=== PATIENT | male | born 1985 | race Caucasian/White ===

== ENCOUNTER 2018-11-02 15:34 | Emergency (ER) | payer MEDICAID, SELFPAY ==
[2018-11-02 15:35] VITALS: BP 162/109; PULSE 89; RESP 15; TEMP 36.6; O2SAT 97; BMI 32.0
--- NOTE | 2018-11-02 15:42 | RAD_ITS ---
STUDY: X-RAY CHEST REASON FOR EXAM: Male, 33 years old. Rib pain. TECHNIQUE: Frontal and lateral views of the chest. COMPARISON: None. FINDINGS: There are low lung volumes. Lungs are clear. No pneumothorax. No infiltrates or effusions. There is no demonstrated pleural abnormality. Normal size heart. Normal mediastinum and myra. Normal visualized pulmonary arteries. Normal visualized aortic arch and descending thoracic aorta. Normal visualized thoracic spine. Possible nondisplaced fracture of the lateral portion of the left ninth rib. There is no demonstrated abnormality of the visualized soft tissue structures of the upper abdomen. RAD/Chest PA and Lateral IMPRESSION: Low lung volumes. Possible fracture of the left ninth rib. Electronically Signed: Chidi Mercedes MD at 15:52 EDT , Service support ,
--- NOTE | 2018-11-02 16:28 | ED.VIS.GEN ---
History of Present Illness Chief Complaint: Chest Other Informant: Patient Onset: Days - Trauma 6 days ago Context: Sudden Onset Timing: Continuous Quality: Pain left side posterior axillary line Location: Left Current Severity: Mild Maximum Severity: Severe Worsened by: Movement and breathing Relieved by: Nothing Associated Symptoms: Hurts to breathe Narrative: Patient is a 33-year-old gentleman who injured himself 6 days ago. He was on a riding mower. He had a pipe that was sticking out of the ground. He was thrown over the handlebars of the riding mower. He presented to [facility] and had x-rays that were reported as negative. He denies back pain. He denies abdominal pain. He is on no anticoagulant. He denied head trauma. He denied loss of conscious. Is not amnestic. He denies neck pain. Denies paresthesia, anesthesia motors present the time of the injury. - Past Medical History (1) No significant past medical history Status: Acute Past Medical History - Allergies and Home Meds Allergies/Adverse Reactions: Allergies Penicillins Allergy (Verified 11/02/18 15:35) Unknown Primary Care Physician: NOT,DEFINED [Primary Care Provider] - Past Medical History: None Surgical History: no surgical history Lives: Spouse/ Significant Other Smoking Status: Current every day smoker Alcohol: Rare Drugs: None Review of Systems General: Denies: Chills, Fever, Sweats Eyes: Denies: Visual changes - bilaterally, Blurred Vision - bilaterally, Diplopia ENT: Denies: Bilateral ear pain, Rhinorrhea, Sore throat Cardiovascular: Reports: Chest pain. Denies: Palpitations, Heart racing Respiratory: Reports: - - Hurts to breathe. Denies: Dyspnea, Cough, Sputum, Dyspnea on exertion, Orthopnea Gastrointestinal: Denies: Abdominal pain, Nausea, Vomiting, Diarrhea, Melena, Hematochezia Genitourinary: Denies: Dysuria, Hematuria, Frequency Musculoskeletal: Denies: Myalgias, Arthralgias, Neck pain, Back pain, Swelling, Extremity Pain Skin: Denies: Rash, Abrasions, Wounds Neurological: Denies: Headache, Weakness, Numbness Hematologic: Denies: Easy bruising, Easy bleeding Physical Exam Vital Signs/Narrative: Vital Signs Temp Pulse Resp BP Pulse Ox 11/02/18 15:35 97.9 F 89 15 162/109 H 97 Inital Vital Signs reviewed: Yes General: Well nourished, Well developed, Acute Distress Head: Normocephalic, Atraumatic Eyes: Perrl, EOMI ENT: Moist mucous membranes, No rhinorrhea Neck: Supple, Nontender Cardiovascular: Regular rate, Regular rhythm, No murmurs, Normal S1, Normal S2 Respiratory: No distress, CTA bilaterally, Chest nontender. Negative for: Rales, Rhonchi, Wheezing, Decreased Air Movement Abdomen: Soft, Nontender, Nondistended, Normal bowel sounds Back: Nontender, Normal Inspection Extremities: Nontender, No edema Skin: Normal color, No rash Neurological: Alert, Oriented x3, Cranial nerves II-XII grossly intact, Normal Strength, Normal Sensation, Normal DTR, Normal Gait Psychological: Normal affect, Normal Mood Diagnostic/Tx/Re-eval Chest X-Ray - ED: 2 View, Read by ED Physician, Normal, Heart, Lungs, Mediastinum, Left Rib Fx - Nondisplaced ninth rib fracture. There is no evidence of hemothorax or pneumothorax. - Medical Decision Making Nursing protocol was initiated. X-ray of the chest was obtained to evaluate for pneumothorax hemothorax. X-ray does reveal fracture. He was medicated with oral opiate analgesia and discharge with prescription for Percocet times 7 days and incentive spirometer. ED Disposition - Plan for ED Patient: Disposition: Home or Assisted Living Diagnosis: Left rib fracture Prescriptions: Oxycodone HCl/Acetaminophen [Percocet 5/325] 1 - 2 tab PO Q6H PRN PRN 7 Days #60 tab PRN Reason: Pain Referrals: Chris Capone MD [NON-STAFF] - 1 Week if not improving
[2018-11-02 16:39] VITALS: BP 155/98; PULSE 89; RESP 16; O2SAT 100
[2018-11-02] MEDS: oxyCODONE 5 MG Tablet PO (16:42)
== END 2018-11-02 16:43 | disposition home or self-care (01) ==
PROVIDERS: Emergency Provider Emergency Medicine
DX: S22.32XA Fracture of one rib, left side, initial encounter for closed fracture (principal); W31.89XA Contact with other specified machinery, initial encounter; Y93.H2 Activity, gardening and landscaping; Y92.9 Unspecified place or not applicable; Y99.9 Unspecified external cause status; F17.200 Nicotine dependence, unspecified, uncomplicated; Z88.0 Allergy status to penicillin
CPT/HCPCS: 71046; 99283

== ENCOUNTER → 2022-08-16 | Outpatient (CLI) | payer MEDICAID, SELFPAY ==
[2022-08-16 09:57] LABS: Hematocrit 48.7 % (40-54); Hemoglobin 15.8 g/dL (13.0-16.5); Mean Corp Hgb Conc 32.4 g/dL (32-36); Mean Corpuscular Hgb 27.7 pg (27.0-32.0); Mean Corpuscular Volume 85.4 fL (80-94); Mean Platelet Vol. 11.7 fl (6.2-12.0); Platelet Count 190 K/mm3 (150-450); RBC Distribution Width CV 13.7 % (11.6-14.6); RBC Distribution Width SD 42.7 fl (35.1-43.9); White Blood Count 7.1 K/mm3 (4.4-11.0)
[2022-08-16 10:50] LABS: Hemoglobin A1c 10.8 % (3.8-5.6)
[2022-08-16 11:06] LABS: ALB/GLOB Ratio 0.8 RATIO (0.9-2.4); AST(SGOT) 48 U/L (15-37); Alanine Aminotransfer ALT/SGPT 109 U/L (16-61); Albumin, Serum 3.5 g/dL (3.2-5.0); Alkaline Phosphatase 134 U/L (45-117); Anion Gap 10 (5-15); BUN 14 mg/dL (7-18); BUN/Creat Ratio 14.2 RATIO (10-20); Chloride 98 mmol/L (98-107); Creatinine, Serum 0.99 mg/dL (0.70-1.30); EST Glomerular Filtration Rate 90 mL/min (>60); Est Glom Filt Rate - Afr Amer 109 mL/min (>60); Globulin 4.2 g/dL (2.2-4.2); Glucose 307 mg/dL (74-106); Protein, Total 7.7 g/dL (6.4-8.2); Sodium Level 134 mmol/L (136-145); T4 Free Direct 0.97 ng/dL (0.76-1.46); Thyroid Stim Hormone (TSH) 2.91 uIU/mL (0.358-3.74)
== END | disposition home or self-care (01) ==
LOC: MTLAB 09:28
PROVIDERS: Nurse Practitioner Family; PCP Family Medicine; Referring Provider Family Medicine; Visit Provider Family Medicine
DX: R07.9 Chest pain, unspecified (principal); R63.1 Polydipsia
CPT/HCPCS: 36415; 80053; 83036; 84439; 84443; 85027

== ENCOUNTER → 2022-08-20 | Outpatient (CLI) | payer MEDICAID, SELFPAY ==
--- NOTE | 2022-08-20 13:05 | ECHOCS_ITS ---
Reason For Study: Hx Circulatory Disease Procedure This was a 2D Doppler, Color Flow transthoracic echocardiogram. The study was technically difficult. Contrast injection was performed. Exam performed in department. Left Ventricle Normal LV size. Left ventricular systolic function is normal. The estimated ejection fraction is 60 %. No regional wall motion abnormalities noted. Right Ventricle Normal RV size. Normal systolic function. Atria Normal left atrium. Normal right atrium. Mitral Valve Normal mitral valve. Tricuspid Valve Normal tricuspid valve. Aortic Valve The aortic valve is not well visualized. Pulmonic Valve The pulmonic valve is not well visualized. Great Vessels Normal aortic root. The pulmonary artery is normal size. Normal inferior vena cava. Pericardium/Pleural No pericardial effusion. Medication 22 gauge I.V. with prn adaptor inserted into left arm. Diluted definity 2.5ml given slow IV push to enhance endocardial definition. MMode/2D Measurements & Calculations LVIDd: 5.5 cm IVSd: 0.78 cm Ao root diam: 4.1 cm LVIDs: 3.4 cm LVPWd: 1.1 cm LA dimension: 4.0 cm FS: 38.4 % LAV(MOD-bp): 32.5 ml LA A4 area: 13.9 cm2 RA A4 area: 13.8 cm2 LAV(MOD-bp) Indexed: 12.0 ml/m2 LAV(MOD-sp2): 33.4 ml LAV(MOD-sp4): 30.2 ml Time Measurements MV dec time: 0.26 sec Doppler Measurements & Calculations MV E max yannick: 58.9 cm/sec Lat Peak E' Yannick: 17.9 cm/sec Med Peak E' Yannick: 10.0 cm/sec MV A max yannick: 72.6 cm/sec E/E' lat: 3.3 E/E' med: 5.9 MV E/A: 0.81 MV V2 max: 72.3 cm/sec MV P1/2t max yannick: 73.2 cm/sec Ao V2 max: 119.1 cm/sec MV max P.1 mmHg MV P1/2t: 84.5 msec Ao max P.7 mmHg MV V2 mean: 43.3 cm/sec MV dec slope: 253.8 cm/sec2 MV mean P.88 mmHg MV V2 VTI: 16.4 cm MVA(P1/2t): 2.6 cm2 LV V1 max: 105.7 cm/sec PA V2 max: 116.5 cm/sec LV V1 max P.5 mmHg PA V2 mean: 73.7 cm/sec ECHO/Echo Complete W/ Contrast Interpretation Summary Normal LV size. Left ventricular systolic function is normal. The estimated ejection fraction is 60 %. Contrast injection was performed. Ordering Physician: Ariadne Vega Performed By: Curt Grant RCS
== END | disposition home or self-care (01) ==
PROVIDERS: PCP Family Medicine; Visit Provider Nurse Practitioner Family
DX: Z86.79 Personal history of other diseases of the circulatory system (principal)
CPT/HCPCS: 93306; Q9957; A4216; C8929

== ENCOUNTER → 2022-09-26 | Outpatient (CLI) | payer MEDICAID, SELFPAY ==
[2022-09-26 12:59] LABS: ALB/GLOB Ratio 0.9 RATIO (0.9-2.4); AST(SGOT) 38 U/L (15-37); Alanine Aminotransfer ALT/SGPT 75 U/L (16-61); Albumin, Serum 3.7 g/dL (3.2-5.0); Alkaline Phosphatase 90 U/L (45-117); Anion Gap 7 (5-15); BUN 18 mg/dL (7-18); BUN/Creat Ratio 19.1 RATIO (10-20); Calcium,Total 9.5 mg/dL (8.5-10.1); Chloride 106 mmol/L (98-107); Creatinine, Serum 0.94 mg/dL (0.70-1.30); EST Glomerular Filtration Rate 94 mL/min (>60); Est Glom Filt Rate - Afr Amer 114 mL/min (>60); Glucose 129 mg/dL (74-106); Potassium 3.8 mmol/L (3.5-5.1); Protein, Total 7.7 g/dL (6.4-8.2); Sodium Level 137 mmol/L (136-145)
== END | disposition home or self-care (01) ==
LOC: MTLAB 09:35
PROVIDERS: PCP Family Medicine; Referring Provider Nurse Practitioner Family; Visit Provider Nurse Practitioner Family
DX: R74.8 Abnormal levels of other serum enzymes (principal)
CPT/HCPCS: 36415; 80053

== ENCOUNTER 2022-10-03 08:31 | Day surgery (SDC) | payer MEDICAID, SELFPAY ==
[2022-10-03 08:53] VITALS: BP 153/88; PULSE 87; RESP 18; TEMP 36.4; O2SAT 98; BMI 35.8
[2022-10-03] MEDS: Lactated Ringers 1,000 ML 15 ML IV (08:56)
--- NOTE | 2022-10-03 09:25 | HP.PCM_ITS ---
History and Physical Date of Admission: 10/03/22 Date of Service:? 08/14/22 MR#: [id number] Acct: [id number] Name:STEFANY ABBASI Rep #: [id number] : 1985 ? ? Provider: Dr. Rudi Vides MD Age/Sex:? 37/M ? ? Location: [facility] Status: Signed Intake Intake Visit Reasons:?UMBILICAL HERNIA Chief Complaint: umbilcal hernia, f/u 3 week medication check Is patient in pain?: No Allergies Penicillins Allergy (Verified 08/14/22 09:05) Unknown Medications omeprazole 40 mg capsule,delayed release 40 mg PO DAILY #30 caps 08/14/22 [Rx Confirmed 08/14/22] PFSH Medical History? Hearing loss Umbilical hernia Family History? Father Heart diseaseBrother Heart diseaseAunt ?? No problems noted. Social History? Smoking Status:? Unknown if ever smoked HPI HPI HPI: Patient is a 37-year-old male known to me for history of umbilical hernia as well as severe GERD who presents for follow-up of his GERD symptoms.? His initial consultation visit was 07/24/2022.? He reports today again with his .? He states that his heartburn is better and he reports that his omeprazole is helping tremendously.? By this he further details that he missed taking 1 dose and woke up gagging that same evening.? In addition to this medication, he is still doing lifestyle things like avoiding lying down too soon after eating.? Mr. Coburn relates a number of other complaints like his back bothering him more and this in turn limiting his activity.? He states that he was inspired following her last visit to work on his weight, but as he increases activity he felt more back pain.? The net effect is he believes his weight is changed maybe 5 pounds, but admits that he does not on a scale.? He also reports that his bloo d pressures continue to run high.? He was given a blood pressure monitor but family member and reports seeing blood pressures of 160s/ 1teens to 107.? His reports that she tried to get her into see his PCP?Dr. Garnett?but that he canceled 2 visits. Below is recapitulated from patient's initial consultation visit for ease of review: HPI: Patient is a 37-year-old male who presents for umbilical hernia.? Patient presents for surgical referral from Dr. Garnett.? This finding was first noticed by patient approximately 1.5 years ago after coughing really hard.? He notes then again 2 months ago he had a sneezing fit and felt significant pain from this hernia.? He has been reluctant to seek evaluation since he has not had any recent surgeries, but grew up around medical providers as a child with a number of maladies.? 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 He also notes that this discomfort has led to relative inactivity otherwise and subsequently, a weight gain of some 40 to 60 pounds over the last 3 years (with 20 pounds coming in the past year).? Other symptoms include: No inability to reduce hernia, no nausea, no obstipation. Patient has a personal history of smoking for 25 years, but reports that he stopped smoking 1 year ago. Pertinent surgical history includes: Noncontributory Besides the above, patient notes severe acid reflux/heartburn symptoms.? He reports these occur every day and sometimes multiple times per day.? He uses Tums every day 2 to 4 tablets to address the symptoms.? He has tried to avoid food triggers which she has identified as pizza, coffee, and spicy foods. He reports that he takes dinner sometimes past 7 PM and then retires to bed at 9 PM.? He confesses that he has woken up on multiple occasions gasping for air and tasting acid within his mouth.? His reports that she has tried to have her take medication more regularly to suppress the symptoms, but that he has been reluctant.? He has never undergone EGD for this issue. Patient has a significant past family history of cardiovascular disease.? He notes that his older brother (10 years his senior) had a heart attack 10 years ago?estimating age of diagnosis is 46.? He also notes that his father and paternal uncle both had heart attacks in their 50s.? He is trying to improve his own health so he does not follow the same path. ROS General General: Yes weight change; No appetite, fatigue, colon cancer, breast cancer or weakness HEENT HEENT: No difficulty swallowing, eye injury, eye surgery, swollen glands or hoarseness Endo Endocrine: No thyroid disease, diabetes mellitus, thyroid cancer, Hair loss, heat intolerance or cold intolerance Skin Skin: No rash or changing moles Breast Breast: No left breast lump, right breast lump, nipple discharge, breast pain, abnormal mammogram, abnormal US or breast enlargement Musc Musculoskeletal: No back problems, arthritis, rheumatoid arthritis, gout or joint pain Cardio Cardiovascular: Yes murmur; No pacemaker, heart disease, atrial fibrillation, high blood pressure, heart attack, heart stent, palpitations, shortness of breat with exertion or chest pain Psych Psychiatric: Yes depression and anxiety; No hearing voices Resp Respiratory: No shortness of breath, No sleep apnea, No cough, No COPD, No asthma, No emphysema and No wheezing Gastro Gastrointestinal: Yes abdominal pain, No nausea or vomiting, No diarrhea, No constipation, No blood in stool, Yes acid reflux, No hemorrhoids, No ulcers, No gallbladder problem and No black,tarry stools Raimundo Hematologic: No blood thinners, No blood disorders, No bleeding, No anemia and No blood clots Neuro Neurologic: No system reviewed and no additional complaints, except as documented, No as per HPI, No abnormal gait, No abnormal hearing, No abnormal movements, No abnormal speech, No behavioral changes, No burning sensations, No confusion, No convulsions, No disequilibrium, No dizziness, No localized weakness, No frequent falls, No headache(s), No lack of coordination, No loss of vision, No memory loss, No numbness, No other visual disturbances, No radicular pain, No restless legs, No sensory deficit, No syncope, No tingling, No tremor(s), No weakness and No other Exam Const General: cooperative and no acute distress Orientation: alert, awake and oriented x3 GI Other: Obese, abdominal striae present.? Nondistended.? Soft and nontender to palpation x4 quadrants.? Mild tenderness present in the epigastrium?favoring left side.? Fat-containing umbilical hernia that is reducible and nontender with palpation. Assessment and Plan Assessment and Plan (1) Heartburn symptom: ?Status:?Chronic ?Comment: Patient reporting much better control of heartburn and reflux symptoms on omeprazole.? Again, I reiterated the need for lifestyle modifications to mitigate the risk for reflux and patient expresses compliance with these requests.? Also again, based on patient's symptoms and history of smoking, I offered EGD to evaluate for possible hiatal hernia, H. pylori infection, or other cause of his symptoms and assess for the effect of the symptoms on patient's GE junction in particular.? This time patient expresses a willingness to proceed with endoscopy exam.? Patient was advised that exam is done under sedation and he will require a concrete mixing truck driver the day of the procedure. ?Plan: ? Continue omeprazole (refill order to pharmacy) ? Diagnostic EGD under local MAC.? Plan for empiric H. pylori biopsies and as needed based on exam. (2) Acid reflux: ?Status:?Acute ?Comment: Patient describing significant improvement of nighttime awakenings with acid reflux?now limited to just 1 episode since his consultation visit 07/24/2022. ?Plan: ? Continue omeprazole ? Diagnostic EGD as above (3) Umbilical hernia: ?Status:?Chronic ?Comment: This is a 37-year-old male who presented for initial surgical consultation in relation to an umbilical hernia on 07/24/2022.? At that time we discussed intentional weight loss would be required to optimize his postoperative outcome with a repair.? Patient is having a difficult time with this already given chronic back pains.? I have referred him back to his primary care provider and suggested he may benefit from referral to either spine surgery or pain medicine.? I have encouraged him to continue what ever activity is tolerable at this point.? Additionally, patient remarks of hypertension?noted with periodic BP checks at home.? Most concerning he is reporting diastolic pressures in excess of 110 mmHg?which I stated to him was an independent risk factor for stroke events.? This is particularly poignant given his family history of cardiovascular events.? I have strongly urged him to make his PCP, Dr. Garnett aware of this information and get in for a follow-up visit.? Today he reports being asymptomatic from this issue and his blood pressure was 140/90. ?Plan: ? Continue to recommend weight loss before considering repair of umbilical hernia ? Patient to follow-up with PCP, Dr. Garnett regarding uncontrolled hypertension ? ? ? Medications: Refilled omeprazole 40 mg? PO DAILY 30 caps 0RF ? ? I have examined the patient the following changes are noted: Patient reports that he has had a 25 pound weight loss. He reports that he has had minimal acid reflux symptoms and suspects that his previous symptoms may have been due to overeating. He notes that he has been off his prescribed omeprazole for the last 3 days or so due to running out of the medication and is awaiting a refill. He denies any questions for today's procedure. Therefore we will proceed with EGD under MAC sedation as discussed above.
--- NOTE | 2022-10-03 09:30 | IMM_PTH ---
PATIENT: STEFANY KAUR LOC: EN U#:[id number] AGE/SX: 37/M ROOM: RE10/03/[address]: Dr. Rudi Vides MD : 1985 BED: DIS: 10/03/2022 SPEC #: [id number] RECD: 10/03/22 13:37 STATUS: VAN PREMA #: [id number] GEOVANNA: 10/03/22 09:[address]: Rudi Vides DEPT: IMMUNOHISTOCHEMISTRY RECD BY: Lucretia Quiles ENTERED: 10/03/22 13:37 SP TYPE: IMMUNO OTHR DR: Edna Garnett DO Tissues: B - Stomach, NOS Procedures: H Pylori (initial) PHYSICIAN & INSTITUTION [place] [id number] SPECIMEN INFORMATION: Tissue Source: B ? Antrum biopsy Clinical Info: Heartburn, acid reflux, umbilical hernia Specimen Number: [id number] CPT code: 55689 METHODOLOGY: Deparaffinized sections of prefer/formalin-fixed tissue or PAP/DQ stained slides are incubated with monoclonal/polyclonal antibodies/oligonucleotide probes. Localization is made via biotin free immunoperoxidase method. Appropriate controls are performed and reacted as expected. Results on target cell population are indicated in the following table: RESULTS: ANTIBODY / CLONE RESULT Block B H Pylori (polyclonal) negative These tests were developed and their performance characteristics determined by [facility]. They may not have been cleared or approved by the U.S. Food and Drug Administration. The FDA has determined that such clearance or approval is not necessary. The above immunohistochemical/dualISH markers are ordered and reviewed by the Pathologist. INTERPRETATION: B. Antrum, biopsy: Negative for Helicobacter pylori organisms. SJ:krys 10/07/2022
--- NOTE | 2022-10-03 09:30 | EGD_PTH ---
PATIENT: STEFANY KAUR LOC: EN U#:[id number] AGE/SX: 37/M ROOM: RE10/03/[address]: Dr. Rudi Vides MD : 1985 BED: DIS: 10/03/2022 SPEC #: [id number] RECD: 10/03/22 12:21 STATUS: VAN PREMA #: [id number] GEOVANNA: 10/03/22 09:[address]: Rudi Vides DEPT: SURGICAL PATHOLOGY RECD BY: Malini Martinez ENTERED: 10/03/22 13:07 SP TYPE: EGD BIOPSY OTHR DR: Edna Garnett DO Tissues: A - Duodenum, NOS B - Gastric mucous membrane C - Esophagus, NOS Procedures: Special Stain Group II Surgery Specimen Level IV Alcian Blue/PAS (control) HEADER OPERATION: EGD (MAC), biopsy, electrohemostasis PRE-OP DIAGNOSIS: Heartburn, acid reflux, umbilical hernia TISSUE SUBMITTED: A ? Duodenal polyp biopsy, B ? Antrum biopsy for histo and H. pylori, C - Gastroesophageal junction biopsy MICROSCOPIC DIAGNOSIS A. Duodenal polyp, biopsy: A fragment of small intestinal mucosa with mild nonspecific chronic inflammation. B. Antrum, biopsy: Mild gastritis. See microscopic description and comment. C. Gastroesophageal junction, biopsy: Fragments of gastroesophageal mucosa with chronic inflammation. Intestinal metaplasia (goblet cell metaplasia) not identified. See comment. SJ:krys 10/04/2022 COMMENT B. The results of immunohistochemistry for Helicobacter pylori will be reported separately ([id number]). C. Alcian blue/PAS stain with matched control is used in the evaluation of the specimen. MICROSCOPIC DESCRIPTION Slides are reviewed. B. The specimen shows fragments of gastric mucosa with chronic inflammatory cell infiltrates in the lamina propria consisting of lymphocytes and plasma cells, consistent with mild chronic gastritis. GROSS DESCRIPTION A - Received in fixative is one container labeled with the patient's name and designated duodenal polyp biopsy. The specimen consists of one irregular fragment of light aponte soft tissue that measures 0.4 x 0.2 x 0.1 cm. The specimen is totally submitted in one cassette. B - Received in fixative is one container labeled with the patient's name and designated antrum biopsy. The specimen consists of multiple irregular fragments of light aponte soft tissue that in aggregate measure 0.5 x 0.4 x 0.1 cm. The specimen is totally submitted in one cassette. C - Received in fixative is one container labeled with the patient's name and designated GE junction biopsy. The specimen consists of two irregular fragments of light aponte soft tissue that in aggregate measure 0.6 x 0.3 x 0.1 cm. The specimen is totally submitted in one cassette. / SJ:rg 10/03/2022 TC:3 CPT: 93192 x3, 60561
[2022-10-03 10:05] VITALS: BP 153/88; BP 96/53; PULSE 65; RESP 16; TEMP 36.1; O2SAT 95
[2022-10-03 10:10] VITALS: BP 101/57; BP 153/88; PULSE 66; RESP 16; O2SAT 93
--- NOTE | 2022-10-03 10:10 | OP.EGD_ITS ---
Patient Name: Jayden Coburn Procedure Date: 10/03/2022 9:18 AM Date of : 1985 Age: 37 Procedure: Upper GI endoscopy Indications: Heartburn, Suspected esophageal reflux Providers: Rudi Vides MD Referring MD: Rudi Vides MD Medicines: See the Anesthesia note for documentation of the administered medications Patient Profile: Refer to note in patient chart for documentation of history and physical. Patient has symptoms of chronic throat burning. Complications: No immediate complications. Estimated blood loss: Minimal. Procedure: Pre-Anesthesia Assessment: - The heart rate, respiratory rate, oxygen saturations, blood pressure, adequacy of pulmonary ventilation, and response to care were monitored throughout the procedure. After obtaining informed consent, the endoscope was passed under direct vision. Throughout the procedure, the patient's blood pressure, pulse, and oxygen saturations were monitored continuously. The gastroscope was introduced through the mouth, and advanced to the second part of duodenum. The upper GI endoscopy was somewhat difficult due to the patient's agitation. Successful completion of the procedure was aided by increasing the dose of sedation medication. The patient tolerated the procedure fairly well. Scope In: 9:30:42 AM Scope Out: 9:58:24 AM Total Procedure Duration Time 0 hours 27 minutes 42 seconds Findings: The second portion of the duodenum was normal. No biopsies or other specimens were collected for this exam. A single 3 mm semi-sessile polyp with no bleeding was found in the first portion of the duodenum. Biopsies were taken with a cold forceps for histology. Estimated blood loss was minimal. Localized mild inflammation characterized by erythema was found in the gastric antrum. Biopsies were taken with a cold forceps for histology. Biopsies were taken with a cold forceps for [Purpose]. A small hiatal hernia was present. The Z-line was irregular and was found 43 cm from the incisors. Biopsies were taken with a cold forceps for histology. Estimated blood loss: 5 mL requiring treatment with electrocautery. The exam was otherwise without abnormality. Impression: - Normal second portion of the duodenum. No specimens collected. - A single duodenal polyp. Biopsied. - Gastritis. Biopsied. - Small hiatal hernia. - Z-line irregular, 43 cm from the incisors. Biopsied. - The examination was otherwise normal. Recommendation: - Discharge patient to home (via wheelchair). - Resume previous diet today. - Continue present medications. - Await pathology results. - Telephone my office for pathology results in 1 week. Procedure Code(s): --- Professional --- 72870, Esophagogastroduodenoscopy, flexible, transoral; with biopsy, single or multiple Diagnosis Code(s): --- Professional --- K31.7, Polyp of stomach and duodenum K29.70, Gastritis, unspecified, without bleeding K44.9, Diaphragmatic hernia without obstruction or gangrene K22.8, Other specified diseases of esophagus R12, Heartburn CPT copyright 2017 [employer]. All rights reserved. The codes documented in this report are preliminary and upon supervisory civil engineer review may be revised to meet current compliance requirements. Rudi Vides MD 10/03/2022 10:10:01 AM This report has been signed electronically. Number of Addenda: 0 Note Initiated On: 10/03/2022 9:18 AM
--- NOTE | 2022-10-03 10:11 | OP.CCLET_ITS ---
10/03/2022 Edna Garnett, Re : Upper GI endoscopy procedure for Jayden Coburn Dear Mariola This procedure was performed on September. My impressions and recommendations are as follows: Impressions : - Normal second portion of the duodenum. No specimens collected. - A single duodenal polyp. Biopsied. - Gastritis. Biopsied. - Small hiatal hernia. - Z-line irregular, 43 cm from the incisors. Biopsied. - The examination was otherwise normal. Recommendations : - Discharge patient to home (via wheelchair). - Resume previous diet today. - Continue present medications. - Await pathology results. - Telephone my office for pathology results in 1 week. My findings are described in the full procedure note, which is enclosed. If I can be of further assistance, please feel free to contact me at Doctor phone number(s): , Work: . Sincerely, Rudi Vides MD 10/03/2022 10:10:01 AM This report has been signed electronically.
[2022-10-03 10:15] VITALS: BP 153/88; BP 91/54; PULSE 69; RESP 16; O2SAT 96
[2022-10-03 10:21] VITALS: BP 101/63; BP 153/88; PULSE 70; RESP 16; TEMP 35.9; O2SAT 98
[2022-10-03 10:31] VITALS: BP 153/88
== END 2022-10-03 10:49 | disposition home or self-care (01) ==
LOC: EN 08:32 → AC 08:33
PROVIDERS: PCP Family Medicine; Referring Provider Family Medicine; Visit Provider Surgery
PROC: 0DJ08ZZ Inspection of Upper Intestinal Tract, Via Natural or Artificial Opening Endoscopic (ICD-10-PCS; CPT 43235; principal; 2022-10-03 09:25)
DX: K42.9 Umbilical hernia without obstruction or gangrene (principal); E11.9 Type 2 diabetes mellitus without complications; K29.70 Gastritis, unspecified, without bleeding; K44.9 Diaphragmatic hernia without obstruction or gangrene; K31.7 Polyp of stomach and duodenum; K21.9 Gastro-esophageal reflux disease without esophagitis; I10 Essential (primary) hypertension; Z79.84 Long term (current) use of oral hypoglycemic drugs; Z79.899 Other long term (current) drug therapy; Z86.718 Personal history of other venous thrombosis and embolism; Z87.891 Personal history of nicotine dependence
CPT/HCPCS: 43239; 88305; 88313; 88342; J7120; J2405

== ENCOUNTER → 2022-11-12 | Outpatient (CLI) | payer MEDICAID, SELFPAY ==
[2022-11-08 16:58] LABS: Hemoglobin A1c 6.4 % (3.8-5.6)
--- NOTE | 2022-11-12 12:33 | SUR.PREOP ---
RN ENTERED ROOM TO CHECK PATIENT IN FOR SURGERY. PATIENT STATED HE DOES NOT WANT TO HAVE THE SURGERY ANYMORE. PATIENT EDUCATED ON PATIENT RIGHTS. THIS RN OFFERED FOR PATIENT TO SPEAK WITH BEFORE LEAVING IN CASE HE HAD ANY QUESTIONS OR CONCERNS. PATIENT STATES THAT HE DOES NOT WISH TO SPEAK WITH . PATIENT WAS ACCOMPANIED BY AND MOTHER. PATIENT HAD NO QUESTIONS, COMMENTS, OR CONCERNS FOR RN AT THIS TIME. RN NOTIFIED THAT PATIENT DOES NOT WISH TO SPEAK WITH HIM. RN NOTIFIED [employer] AND OR MECH[employer] OF PATIENT CANCELLING HIMSELF.
== END | disposition home or self-care (01) ==
LOC: PAT 12-11 17:27
PROVIDERS: Anesthesiology; PCP Family Medicine; Referring Provider Surgery; Visit Provider Surgery
DX: Z01.818 Encounter for other preprocedural examination (principal); Z53.29 Procedure and treatment not carried out because of patient's decision for other reasons
CPT/HCPCS: 36415; 83036; 87081; J7120

== ENCOUNTER → 2022-11-20 | Outpatient (CLI) | payer MEDICAID, SELFPAY ==
[2022-11-20 12:46] LABS: Absolute Neutrophil Count 5.2 X10^3/uL (2.0-7.7); Basophil# 0.03 X10^3/uL; Basophil% 0.4 % (0-1); Eosinophil# 0.12 X10^3/uL; Eosinophils% 1.5 % (0-5); Hematocrit 47.4 % (40-54); Hemoglobin 15.7 g/dL (13.0-16.5); Lymphocyte % 27.9 % (19-41); Mean Corp Hgb Conc 33.1 g/dL (32-36); Mean Corpuscular Hgb 28.4 pg (27.0-32.0); Mean Corpuscular Volume 85.9 fL (80-94); Mean Platelet Vol. 11.8 fl (6.2-12.0); Monocyte% 7.3 % (0-10); NRBC Flagged by Analyzer 0 % (0-5); Neutrophil # 5.16 X10^3/uL (2.7-7.7); Neutrophil % 62.5 % (47-70); Platelet Count 256 K/mm3 (150-450); RBC Distribution Width CV 14.6 % (11.6-14.6); RBC Distribution Width SD 46.8 fl (35.1-43.9); Red Blood Count 5.52 M/mm3 (4.6-6.2); White Blood Count 8.2 K/mm3 (4.4-11.0)
[2022-11-20 13:13] LABS: ALB/GLOB Ratio 0.8 RATIO (0.9-2.4); AST(SGOT) 13 U/L (15-37); Alanine Aminotransfer ALT/SGPT 39 U/L (16-61); Albumin, Serum 3.5 g/dL (3.2-5.0); Alkaline Phosphatase 86 U/L (45-117); Anion Gap 7 (5-15); BUN 21 mg/dL (7-18); BUN/Creat Ratio 19.6 RATIO (10-20); Calcium,Total 9.2 mg/dL (8.5-10.1); Chloride 102 mmol/L (98-107); Creatinine, Serum 1.07 mg/dL (0.70-1.30); EST Glomerular Filtration Rate 82 mL/min (>60); Est Glom Filt Rate - Afr Amer 99 mL/min (>60); Ferritin 194 ng/mL (26-388); Globulin 4.3 g/dL (2.2-4.2); Glucose 121 mg/dL (74-106); Potassium 4.3 mmol/L (3.5-5.1); Protein, Total 7.8 g/dL (6.4-8.2); Sodium Level 134 mmol/L (136-145)
== END | disposition home or self-care (01) ==
LOC: MTLAB 11:18
PROVIDERS: PCP Family Medicine; Referring Provider Family Medicine; Visit Provider Family Medicine
DX: K92.1 Melena (principal); R11.2 Nausea with vomiting, unspecified
CPT/HCPCS: 36415; 80053; 82728; 85025

== ENCOUNTER → 2023-02-18 | Outpatient (CLI) | payer MEDICAID, SELFPAY ==
--- NOTE | 2023-02-18 16:05 | RAD_ITS ---
STUDY: X-RAY - LUMBOSACRAL SPINE REASON FOR EXAM: Male, 37 years old. Pain. TECHNIQUE: 6 view(s) of the lumbosacral spine, including lateral flexion and extension were obtained. COMPARISON: None FINDINGS: Normal lumbar lordosis. No substantial scoliosis. Normal alignment of the vertebrae. Normal vertebral bodies and endplates. Limited flexion and extension no abnormal motion. Mild intervertebral disc space narrowing at L4-5 and L5-S1 without significant osteophyte formation. Normal bilateral sacral ala, sacroiliac joints, and visualized sacrum. Normal visualized soft tissue structures. RAD/L/S Spine w Bend Min 6 Vw IMPRESSION: Limited flexion and extension with no abnormal motion. Minimal lumbosacral spondylosis most marked at L4-5 and L5-S1 without osteophytes. No acute abnormality or erosive changes. Electronically Signed: Chun Álvarez MD at 9:42 EDT ,
== END | disposition home or self-care (01) ==
LOC: MTRAD 16:03
PROVIDERS: PCP Family Medicine; Referring Provider Family Medicine; Visit Provider Family Medicine
DX: M54.50 Low back pain, unspecified (principal)
CPT/HCPCS: 72114

== ENCOUNTER 2023-04-04 13:00 | Outpatient (RCR) | payer MEDICAID, SELFPAY ==
--- NOTE | 2023-02-25 09:34 | HP.PTEVAL ---
Patient's Visit Information Visit Information Visit Information: STEFANY KAUR is a 38 year old M referred to Physical Therapy by Dr. Tony Coto MD with a diagnosis of Lumbar DDD. Date of Evaluation: 02/25/23 Physical Therapist: Juan Lopez DPT Visit Plan Frequency: 2x /Week Duration: 6 Weeks Plan: Start with prone extension progression. Start with prone over pillows slowly progressing into further extension progression as tolerated. May use IFC to increase tolerance to this. Once pain has centralized initiate neutral spine core stability exercises. Pt. was not able to tolerance full extension positioning this date, but only prone over pillows. Pt. progress as tolerated. May add in PA mobilizations and manual traction of lumbar spine with single leg pulls. Subjective Subjective: Pt. is here today for his initial evaluation with diagnosis of Lumbar DDD. Pt. reports having increased pain for years, but usually reduces after a few days to week. Pt. reports this time it has not been improving. Pt. reports pain in his L side of lumbar spine that radiates down his leg into his foot at times, currently into his L foot. Pt. reports N/T in the same region. he did have an xray showing some spondylosis of the L5/S1 region. Pt. reports no major LLE weakness. 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 Pt. is sleeping with difficulty secondary to pain. he is also having issues with static standing and sitting. He has better tolerance when he is walking. Pt. has tried some muscle relaxers and anti inflammatory with some relief. He has not tried any chiro or other treatment. pt. is hopeful to reduce his symptoms in order to get back to all recreational and work activities without limitations. Pain Lumbar spine: Pain Intensity (Out of 10): 5 Pain Intensity Range: 2 and 8 Objective Objective: POSTURE: Pt. has slight flexed posture, but not much. Pt. has equal wt. shift, no lateral shift noted. PALPATION: pt. has tenderness at lower lumbar L3-S1 regions. Hypomobility noted with spring testing. NEURO: decreased B DTR 1+ bilateral patellar and achillies. Pt. is able to rise on heels and toes without issues. ROM: LUMBAR SPINE: flexion min loss increase NW, exte mod loss increase NW, SB min loss NE, rotation min loss bilat NE. Pt. has tight B HS and tight B hip flexors. Pt. has tight hips throughout. MMT: RLE 5/5 throughout; LLE: ankle 5/5, great toe ext 5/5; knee: ext 4+/5 mild loss in strength, flexion 5/5; hip: flexion 4/5 mild increase NE, abd 5/5, ext 4+/5 increase NW. Core strength poor. GAIT: Pt. ambulates with fairly normal gait pattern, but does have some guarded posture with limited arm swing and no trunk rotation. Special Tests L/S Slump test left side: Positive L/S Slump test right side: Negative L/S Left Straight Leg Raise: Positive L/S Right Straight Leg Raise: Negative Lumbar Standing: Flexion - Mechanical Response: No effect Lumbar Standing: Flexion - Symptoms During Testing: Increases Lumbar Standing: Flexion - Symptoms After Testing: No worse Lumbar Standing: Extension - Mechanical Response: No effect Lumbar Standing: Extension - Symptoms During Testing: Increases Lumbar Standing: Extension - Symptoms After Testing: No worse Lumbar Standing: Right Side Glides - Mechanical Response: No effect Lumbar Standing: Right Side [place] - Symptoms During Testing: No effect Lumbar Standing: Right Side [place] - Symptoms After Testing: No effect Lumbar Standing: Left Side [place] - Mechanical Response: No effect Lumbar Standing: Left Side [place] - Symptoms During Testing: No effect Lumbar Standing: Left Side [place] - Symptoms After Testing: No effect Lumbar Lying: Flexion - Mechanical Response: No effect Lumbar Lying: Flexion - Symptoms During Testing: Decreases Lumbar Lying: Flexion - Symptoms After Testing: No better Lumbar Lying: Extension - Mechanical Response: No effect Lumbar Lying: Extension - Symptoms During Testing: Increases Lumbar Lying: Extension - Symptoms After Testing: No worse Lumbar Static: Slouched Sit - Mechanical Response: No effect Lumbar Static: Slouched Sit - Symptoms During Testing: Increases Lumbar Static: Slouched Sit - Symptoms After Testing: Worse Lumbar Static: Sitting Erect - Mechanical Response: No effect Lumbar Static: Sitting Erect - Symptoms During Testing: Decreases Lumbar Static: Sitting Erect - Symptoms After Testing: No better Lumbar Static:Lying Prone in Extension - Mechanical Response: No effect Lumbar Static: Lying Prone in Extension - Sx During Testing: Increases Lumbar Static: Lying Prone in Extension - Sx After Testing: No worse Comments:: better over 2 pillows Balance/Special Test Scores Oswestry Low Back Score: 27 Goals Goal 1:: LTG: pt. to be I with HEP for core stability and lumbar extension progression. Goal Time Frame: 4-6 Weeks Goal 2:: STG: Pt. to have full lumbar extension without increase in symptoms. Goal Time Frame: 2-4 Weeks Goal 3:: STG: Pt. to have symptoms centralized to lumbar spine. Goal Time Frame: 2 Weeks Goal 4:: LTG: Pt. to be able to walk and complete all standing ADLs without increase in lumbar spine pain. Goal Time Frame: 4-6 Weeks Goal 5:: LTG: pt. to have increased core strength to fair in order to reduce stress to lumbar spine with all recreational and work activities. Goal Time Frame: 4-6 Weeks Rehabilitation Potential Physical Therapy Diagnosis: Pt. has signs and symptoms consistent with lumbar DDD. Pt. has special testing suggesting disogenic involvement as seen in + slump test, + SLR and some DTR changes. He did have some + relief this visit with extension, but very small movement (prone over pillows). I would like to work into this hopefully to further reduce his symptoms. Pt. would benefit from PT to work on lumbar extension to reduce symptoms progressing back to core stability and back to work activities. Rehabilitation Potential: Good Anticipated Interventions Patient/Client Instruction: Educate patient on: Condition, Plan of Care, Risk Factors and Benefits of Fitness Program For the Purpose of:: To improve decision making, To facilitate caregiver knowledge, To improve self management, To prevent re-injury and To improve ability to perform tasks related to life management Therapeutic Exercise to Include: Strength training, Power training, Flexibilty training, Passive ROM, Active ROM, Dynamic Lumbar Stabilization and Radha Exercises Manual Therapy Techniques to Include: Mobilization Comment: manual traction For the Purpose of:: To decrease pain, To increase ROM, To improve nutrient delivery to tissue and To increase flexibility/ROM Text: Thank you for the opportunity to evaluate your patient. For Medicare and Medicare HMO plans, please review the plan of care and approve it. It will need to be FAXED BACK to us at [phone] for Medicare purposes. For Medicare only, by signing this I certify the plan of care. Please let me know if there are questions or concerns regarding this plan of care. Physician Signature: Date:
--- NOTE | 2023-04-04 14:44 | HP.PTREVAL ---
Re-Evaluation Intro: Dr. Tony Coto MD, It has been my pleasure to treat STEFANY KAUR over the last 8 visits for Lumbar DDD. Please see the progress note below for an update on the physical therapy plan of care! Subjective Subjective: Pt. reports that is pain is always there, but with get worse at times. He reports being flared up for some reason. No N/T in either leg, but increased L legged pain down to his toes. Objective Objective/Function: LUMBAR SPINE: mod loss increase NW, ext mod loss increase NW, rotation min loss NE bilat, SB min loss NE bilat. Pt. continues to have tight HS bilat. + slump test, + SLR as well. He did not have any weakness in either LE and no N/T. Normal neuro signs. He has been working on lumbar extension ROM to reduce disc irritation. He had originally be doing better, but more recently he has been getting worse. He has constant pain in his LLE to his mid calf and often in his foot. He due to limited reduction on symptoms I would recommend following back up with physician to determine best course of action. Plan Plan Plan: Follow up with physician to determine best course of action. Minimal progress with PT at this point in time. Balance/Gait/Functional tests Balance/Special Test Scores Oswestry Low Back Score: 20 Goals Goals Goal 1:: LTG: pt. to be I with HEP for core stability and lumbar extension progression. Goal Time Frame: 4-6 Weeks Goal Progress: Progressing Goal 2:: STG: Pt. to have full lumbar extension without increase in symptoms. Goal Time Frame: 2-4 Weeks Goal Progress: Progressing Goal 3:: STG: Pt. to have symptoms centralized to lumbar spine. Goal Time Frame: 2 Weeks Goal Progress: Not Progressing Goal 4:: LTG: Pt. to be able to walk and complete all standing ADLs without increase in lumbar spine pain. Goal Time Frame: 4-6 Weeks Goal Progress: Not Progressing Goal 5:: LTG: pt. to have increased core strength to fair in order to reduce stress to lumbar spine with all recreational and work activities. Goal Time Frame: 4-6 Weeks Goal Progress: Progressing Anticipated Interventions Anticipated Interventions Patient/Client Instruction: Educate patient on: Condition, Plan of Care, Risk Factors and Benefits of Fitness Program For the Purpose of:: To improve decision making, To facilitate caregiver knowledge, To improve self management, To prevent re-injury and To improve ability to perform tasks related to life management Therapeutic Exercise to Include: Strength training, Power training, Flexibilty training, Passive ROM, Active ROM, Dynamic Lumbar Stabilization and Radha Exercises Manual Therapy Techniques to Include: Mobilization Comment: manual traction For the Purpose of:: To decrease pain, To increase ROM, To improve nutrient delivery to tissue and To increase flexibility/ROM Re-Evaluation Ending Re-evaluation ending: Please do not hesitate to contact me at [phone] by phone or if you have questions or concerns regarding this new plan of care! Sincerely, WILDER ChicasT
== END 2023-04-04 19:00 | disposition home or self-care (01) ==
LOC: PT 13:00
PROVIDERS: PCP Family Medicine; Referring Provider Family Medicine; Visit Provider Family Medicine
DX: M51.36 Other intervertebral disc degeneration, lumbar region (principal)
CPT/HCPCS: 97014; 97110; 97161; 97164; G0283

== ENCOUNTER → 2023-08-07 | Outpatient (CLI) | payer MEDICAID, SELFPAY ==
--- NOTE | 2023-08-07 13:43 | MRI_ITS ---
HISTORY: Back pain, bilateral leg pain. TECHNIQUE: Multiplanar and multisequence MR images of the lumbar spine were obtained without intravenous contrast. 149 images. COMPARISON: XR 02/18/2023. FINDINGS: VERTEBRAE: Vertebral body heights maintained. Degenerative bone marrow endplate changes of L4-5 and L5-S1. ALIGNMENT: No anterior or posterior subluxation. CONUS: Normal morphology and position of the conus medullaris at L1-2. INTERVERTEBRAL DISCS: T11-12: Mild disc bulge with facet arthropathy resulting in minimal narrowing of the thecal sac and mild bilateral foraminal narrowing based on the sagittal images. T12-L1: No significant posterior disc protrusion, central canal stenosis, or foraminal narrowing based on the sagittal images. L1-2, L2-3: No significant posterior disc protrusion, central canal stenosis, or foraminal narrowing. L3-4: Mild central disc protrusion with annular fissure and facet arthropathy superimposed on a developmentally narrow spinal canal resulting in moderate central canal stenosis and mild bilateral foraminal narrowing. L4-5: Moderate left paracentral disc extrusion with inferior migration with facet arthropathy resulting in left L5 nerve root impingement, moderate central canal stenosis, and moderate bilateral foraminal narrowing. L5-S1: Mild posterior disc protrusion with facet arthropathy resulting in mild bilateral foraminal narrowing. No significant central canal stenosis. SOFT TISSUES: Posterior subcutaneous edema. MRI/Spine Lumbar (Routine) IMPRESSION: Mild degenerative disc disease of L3-4 superimposed on a developmentally narrow spinal canal resulting in moderate spinal canal stenosis and mild bilateral foraminal narrowing. Moderate left paracentral disc extrusion at L4-5 resulting in left nerve root impingement, moderate spinal canal stenosis, and moderate bilateral foraminal narrowing. Electronically Signed: Mary Drew MD at 14:52 EST ,
== END | disposition home or self-care (01) ==
LOC: MRI 13:23
PROVIDERS: PCP Family Medicine; Referring Provider Family Medicine; Visit Provider Family Medicine
DX: M54.9 Dorsalgia, unspecified (principal)
CPT/HCPCS: 72148

== ENCOUNTER → 2023-10-08 | Outpatient (CLI) | payer MEDICAID, SELFPAY ==
[2023-10-08 12:14] LABS: Absolute Lymphocyte Count 2.49 X10^3/uL (0.83-4.51); Absolute Neutrophil Count 4.4 X10^3/uL (2.0-7.7); Basophil# 0.03 X10^3/uL; Basophil% 0.4 % (0-1); Eosinophil# 0.15 X10^3/uL; Hematocrit 49.2 % (40-54); Hemoglobin 16.3 g/dL (13.0-16.5); Lymphocyte # 2.49 X10^3/ul (0.83-4.51); Mean Corp Hgb Conc 33.1 g/dL (32-36); Mean Corpuscular Hgb 28.4 pg (27.0-32.0); Mean Corpuscular Volume 85.7 fL (80-94); Mean Platelet Vol. 11.9 fl (6.2-12.0); Monocyte# 0.51 X10^3/uL; Monocyte% 6.8 % (0-10); NRBC Flagged by Analyzer 0 % (0-5); Neutrophil # 4.36 X10^3/uL (2.7-7.7); Neutrophil % 57.7 % (47-70); Platelet Count 235 K/mm3 (150-450); RBC Distribution Width CV 14.6 % (11.6-14.6); RBC Distribution Width SD 45.8 fl (35.1-43.9); Red Blood Count 5.74 M/mm3 (4.6-6.2); White Blood Count 7.6 K/mm3 (4.4-11.0)
[2023-10-08 12:52] LABS: Microalbumin,Random Urine 20.4 mg/L (NO RANGE EST.); Microalbumin:Creatinine Ratio 10.9 mg/g CRE (<30 mg/g CRE)
[2023-10-08 13:45] LABS: ALB/GLOB Ratio 1.2 RATIO (0.9-2.4); AST(SGOT) 26 U/L (15-37); Alanine Aminotransfer ALT/SGPT 61 U/L (16-61); Albumin, Serum 4.3 g/dL (3.2-5.0); Alkaline Phosphatase 78 U/L (45-117); Anion Gap 6 (5-15); BUN 19 mg/dL (7-18); BUN/Creat Ratio 17.6 RATIO (10-20); Calcium,Total 9.7 mg/dL (8.5-10.1); Chloride 107 mmol/L (98-107); Cholesterol 168 mg/dL (200); Creatinine, Serum 1.08 mg/dL (0.70-1.30); EST Glomerular Filtration Rate 80 mL/min (>60); Est Glom Filt Rate - Afr Amer 97 mL/min (>60); Globulin 3.5 g/dL (2.2-4.2); Glucose 100 mg/dL (74-106); High Density Lipoprotein 20 mg/dL; Potassium 3.9 mmol/L (3.5-5.1); Protein, Total 7.8 g/dL (6.4-8.2); Sodium Level 137 mmol/L (136-145); Triglycerides 376 mg/dL; Very Low Density Lipoprotein 75 mg/dL (5-40)
[2023-10-08 14:00] LABS: Hemoglobin A1c 6.2 % (3.8-5.6)
== END | disposition home or self-care (01) ==
PROVIDERS: PCP Family Medicine; Referring Provider Family Medicine; Visit Provider Family Medicine
DX: I10 Essential (primary) hypertension (principal); E11.9 Type 2 diabetes mellitus without complications
CPT/HCPCS: 36415; 80053; 80061; 82043; 82570; 83036; 85025

== ENCOUNTER 2023-12-10 06:46 | Inpatient (IN) | payer MEDICAID, SELFPAY ==
--- NOTE | 2023-11-27 09:38 | EKG12_ITS ---
Test Reason : PRE OP Blood Pressure : / mmHG Vent. Rate : 082 BPM Atrial Rate : 082 BPM P-R Int : 190 ms QRS Dur : 086 ms QT Int : 338 ms P-R-T Axes : 055 068 -03 degrees QTc Int : 394 ms Normal sinus rhythm Normal ECG Confirmed by Rudi Preciado ([id number]), research editor EZE MAGANA ([id number]) on 12/01/2023 10:00:10 AM Referred By: Shorty Tobias Confirmed By:Rudi Preciado
[2023-12-01 11:14] LABS: Magnesium 2.3 mg/dL (1.6-2.6)
[2023-12-01 11:41] LABS: HIV - WCH Non-Reactive (Nonreactive); Hepatitis B Surface Antibody Reactive; Hepatitis C Antibody Non-Reactive (Nonreactive)
[2023-12-01 12:12] LABS: Hemoglobin A1c 5.8 % (3.8-5.6)
[2023-12-02 13:08] LABS: Hepatitis A AB, Total Negative (Negative)
[2023-12-10] VITALS (17 sets, daily range): BP systolic 122–192; BP diastolic 72–104; PULSE 63–106; RESP 15–20; TEMP 36–36.8; O2SAT 94–100; BMI 38.0
[2023-12-10] MEDS: Acetaminophen 500 MG Tablet 1000 MG PO ×2 (07:49→16:54)
[2023-12-10] MEDS: Lactated Ringers 1,000 ML 15 ML IV ×2 (07:49→14:32)
[2023-12-10] MEDS: Magnesium 1 GM over 15 mins IV (07:50)
[2023-12-10 07:54] LABS: Bedside Glucose 147 mg/dL (74-106)
--- NOTE | 2023-12-10 08:30 | HP.PCM_ITS ---
History and Physical Date of Admission: 12/10/23 MR#: [id number] Acct: [id number] Name: STEFANY KAUR Rep #: [id number] : 1985 Provider: Dr. Shorty Tobias MD Age/Sex: 38/M Location: [facility] [place] Status: Signed Intake Vital Signs 10/20/2408:31 Height 6 ft 5 in Weight: 313 lb 8 oz BMI 37.1 Intake Visit Reasons: lumbar spine Is patient in pain?: Yes Allergies No Known Allergies Allergy (Verified 12/03/23 09:28) Medications ?Medication ?Instructions ?Recorded ?Confirmed ?Type omeprazole 40 mg capsule,delayed 40 mg PO DAILY GERD #30 caps 08/14/22 12/03/23 Rx release lisinopril 10 1 tab PO DAILY BP 09/30/22 12/03/23 History mg-hydrochlorothiazide 12.5 mg tablet metformin 500 mg tablet 1,000 mg PO BID DIABETES 09/30/22 12/03/23 History cyclobenzaprine 10 mg tablet 10 mg PO Q12H PRN PRN muscle spasm 08/25/23 History dulaglutide 0.75 mg/0.5 mL 0.75 mg subcut BAKER DIABETES 08/25/23 12/03/23 History subcutaneous pen injector (Trulicity) naproxen 500 mg tablet 500 mg PO BID PAIN 08/25/23 12/03/23 History PFSH Medical History (Updated 11/24/23 @ 08:29 by Helen Deleon) Diabetes Seizures History of hiatal hernia Shortness of breath on exertion History of pain when walking Wears hearing aid Wears glasses Anxiety Marijuana use DVT (deep venous thrombosis) Back pain Dietary restriction Gastric reflux Former smoker Hypertension History of echocardiogram Umbilical hernia Surgical History History of esophagogastroduodenoscopy (EGD) Hx of tonsillectomy Hx of myringotomy Family History Father Heart diseaseBrother Heart diseaseAunt No problems noted. Social History Smoking Status: Former smoker HPI lumbar spine Details: This documentation accurately reflects the service provided and the decisions made by me, Dr. Shorty Tobias MD 12/03/23 [id number]. Part of today?s visit was documented by [ ], acting as scribe. STEFANY KAUR is a 38 year old M here today for his preop appointment on his lumbar spine. Patient notes that he continues to have pain although he has been trying to staying active. He is able to stand for 5 minutes before he needs to sit down. He has numbness and tingling into his bilateral legs with sitting. His pain is now into his right hip and right quad. Patient takes naproxen for pain. Luis M is is here for his preop visit. He has had longstanding low back pain with left lower extremity radiation. Recently about 2 weeks ago he started having right anterior thigh radiation as well. His symptoms are affecting his quality of life. Following his his previous history. 10/21/23: STEFANY KAUR is a 38 year old M here today for Lumbar pain. Patient states his back has been bothering him a couple of years. Patient states the pain in his whole lower back and he does have pain that radiates down his legs left it worse. Patient has no numbness and tingling that goes down his legs. Patient hasn't had injection in his back. Stefany has had low back pain for many years but this significantly worsened in the middle of summer last year. He has significant low back pain that radiates down to the left lower extremity all the way to the toes. He has significant difficulty with walking distances and is able to walk only about couple of blocks at a time after which she has to find a place to sit down or lean onto something. He avoids going shopping because of this issue. He has had physical therapy and chiropractic treatment without significant relief. He has avoided epidural injections because of this diabetes which is now well-controlled with an A1c of 6.2. He has seen Dr. Saundra paulson multiple times and has been referred to me for surgical intervention. He does not take any blood thinners. He had a cardiac murmur but does not have any ongoing cardiology treatment. He has not been able to walk since fall of last year. He works in [employer]. His symptoms are affecting his quality of life. Ortho Exam General General: Yes no acute distress Neurologic: Yes alert and Yes oriented x3 Spine SPINE TESTING CERVICAL THORACIC LUMBAR Musculoskeletal Strength 0=absent - 5=normal Details: Examination of the lower back shows midline and paraspinal tenderness worse on the left side. Neurologic evaluation of lower extremity shows 5 x 5 power normal shows normal sensations in all dermatomes. Passive straight leg raise test is positive on the left. Coding Level of Care Code Off vis,est,level 4 Diagnoses Herniated nucleus pulposus, L4-5 left M51.26 Spinal stenosis of lumbar region with neurogenic claudication M48.062 Time Spent (min) 35 Assessment and Plan Assessment and Plan (1) Herniated nucleus pulposus, L4-5 left: Status: Acute (2) Spinal stenosis of lumbar region with neurogenic claudication: Status: Acute Plan I again reviewed his x-rays and MRI of the lumbar spine. X-rays are from February and MRI from July. I reviewed these images with him in detail. He has left paracentral disc herniation L4-5 which is causing severe lateral recess stenosis. There is congenital bony canal narrowing with moderate central stenosis at both L3-4 and L4-5. L5-S1 also shows disc degeneration but does not have any significant central or foraminal stenosis. Dynamic x-rays do not show any significant instability. I explained to him the imaging findings in detail. He has developed significant stenosis and claudication and his overall mobility has been significantly affected because of it. He has not been able to work at least for the last 8 to 9 months because of this. I explained to him all options of treatment which include continued nonoperative treat measures versus surgery. Physical therapy and chiropractic treatment has not given him relief in the past. He wishes to proceed with surgical intervention. Surgical options were discussed. L3-5 anterior posterior fusion with anterior decompression was discussed in detail. All risk benefits and alternatives were discussed. The risks include but are not limited to infection, bleeding, injury to nerves and vessels, need for blood transfusion, injury to major vessels, visceral injury, ileus, hardware failure, pseudoarthrosis, adjacent segment degeneration, need for further surgery, DVT, pulm embolism, pneumonia, atelectasis, cardiopulmonary event. Patient understands and agrees to proceed with surgery. Consent was signed.
[2023-12-10] MEDS: Clindamycin 900 MG/50 ML BAG 75 MG IV ×2 (08:53→16:54)
--- NOTE | 2023-12-10 09:25 | RAD_ITS ---
INDICATION: PAIN EXAMINATION/TECHNIQUE: X-RAY - Spot fluoroscopic intraoperative images of the lower lumbar spine COMPARISON: None. FINDINGS/ RAD/Lumbar Spine 2 or 3 Views IMPRESSION: Spot fluoroscopic intraoperative images of the lumbar spine with images to be interpreted by the operating physician. Electronically Signed: Amador Leiva DO at 4:19 EDT ,
[2023-12-10] MEDS: Ropivacaine 0.5% 30 ML Vial (13:47)
--- NOTE | 2023-12-10 14:00 | PCM.OPRPT ---
Report of Operation Date of Procedure: 12/10/23 Description of Surgical Findings:: Preoperative diagnosis: L3-5 disc degeneration, disc herniation, stenosis with neurogenic claudication Postoperative diagnosis: Same Name of procedures L3-5 oblique lumbar interbody fusion (OLIF), minimally invasive left sided approach, lateral decubitus: ? L3-4 anterolateral spinal fusion 86468 ? L4-5 anterolateral fusion 38506/51 ? L3-4 insertion of cage 65698 ? L4-5 insertion of cage 64205/51 ? Bone graft aspirate left iliac crest separate incision ? Allograft cancellous chips Attending Surgeon: Dr. Shorty Tobias Estimated blood loss: 200 mL Anesthesia: General Complications: None Indications: Patient is a 38-year-old pleasant gentleman who has had a long history of low back pain and bilateral lower extremity radiation with difficulty walking distances. Xrays & MRI revealed L3-5 disc degeneration, L3-4 central and L4-5 left paracentral disc herniation. After undergoing a prolonged period of nonoperative treatment, the patient elected to undergo surgical decompression & fusion. All surgical options were discussed with the patient including anterior and posterior approaches. All risks and benefits associated with the procedure were explained to the patient. The risks include but are not limited to infection, bleeding, injury to nerves and vessels including major vessels like IVC and aorta, persistent paresthesia, persistent pain, dural tear, need for further procedures, adjacent segment degeneration, pseudoarthrosis, hardware failure, retrograde ejaculation, paralytic ileus, etc. Procedure: The patient was identified in the preoperative holding suite using Unique patient identifiers. Skin was marked, consent was reviewed, and all questions were answered. The patient was then brought back to the operative room. A surgical timeout was performed to make sure correct procedure was being done on the correct patient and all operative room staff were on the same page. General endotracheal anesthesia was then given to the patient. Clifton catheter was inserted. The patient was then carefully positioned in right lateral decubitus position with the left side up on a regular OR table. Axillary roll was placed and all bony prominences were well- padded. Hip positioners were placed in the posterior buttocks and anterior sternal area. The surgical area was prepped and draped in usual fashion. Preoperative antibiotic was injected IV as preoperative antibiotic. A final timeout was then again done just before starting the procedure. A 2 inch incision oblique was taken in the left lower quadrant of the abdomen 2 fingerbreadths away from the iliac crest and the lower ribs. Sharp dissection with Bovie was carried out up to the fascia covering the external oblique. The external oblique, internal oblique and transversus abdominis muscles were split along the muscle fibers and retroperitoneal space was entered. Sponge sticks were utilized to move the bowel and peritoneum vyz-[id number]-vvf-way and psoas muscle was exposed staying within the retroperitoneal plane. [employer] retractor system was positioned and the retractor blade was applied onto the psoas. The interval between psoas and midline structures was developed and appropriate retractors were placed. Once adequate interval was cleared, a disc space was identified and a marker x-ray was taken. This identified the L4-5 disc level. The prepsoas interval was then traced superiorly to expose the L3-4 disc space. Annulotomy was done with a long handled knife starting at L4-5. Pituitary was used to remove disc material. Curettes were used to prepare the endplates. Disc space spreaders were utilized to distract and increase the disc height. Near complete discectomy was performed. Trials of serially increasing sizes were used. A Jamshidi needle was used to aspirate bone marrow from the left anterior iliac crest through a separate incision and this aspirate was mixed with the allograft bone chips. A Depuy Graham cage of size of the 18 x 15 x 12 mm with 15 degrees lordosis was packed with corticocancellous allograft bone chips mixed with bone marrow aspirate. This was inserted into the L4-5 disc space. The retractors were then repositioned to expose the L3-4 disc and the procedure was repeated with complete discectomy and endplate preparation. Smaller disc distractors were also used to bluntly perform a contralateral annulotomy at the both levels. Cage size was 18 x 15 x 14 mm at L3-4. AP and lateral C-arm pictures were taken to confirm good position of the cage. Some bone chips were also packed around the cages. Screw with washer was placed into the lower L3 body with a washer partially covering the cage at L3-4. Hemostasis was confirmed. The retractor blades were removed. Closure was done in layers with a continuous strand of # 1 Vicryl in all muscle layers. 2-0 Vicryl was used for subcutaneous tissue and 4-0 for Monocryl for the skin. Steri-Strips were applied and 4 x 4 gauze and Tegaderm were applied. Surgeon: Shorty Tobias Admit VTE Documentation VTE Mechan Device Prophylaxis: SCD's Procedures Musculoskeletal 20xxx-29xxx: Other Procedure See Report
--- NOTE | 2023-12-10 14:11 | OP.PCM_ITS ---
Report of Operation Date of Procedure: 12/10/23 Description of Surgical Findings:: Preoperative diagnosis: L3-5 disc degeneration, disc herniations, stenosis with neurogenic claudication Postoperative diagnosis: Same Name of procedures: L3-5 posterior percutaneous pedicle screw instrumented fusion, prone: ? L3-4 posterior spinal fusion 34134 ? L3-5 posterior pedicle screw instrumentation 50740 ? L4-5 posterior fusion 97242/51 ? Allograft cancellous chips Attending Surgeon: Dr. Shorty Tobias Asst surgeon: Dr. Baldemar Heath Estimated blood loss: 200 mL (total for entire case) Anesthesia: General Complications: None Description of procedure: After the anterior procedure was complete, the patient was then turned supine. The patient was then transferred to Guille table in prone position. Back was prepped and draped in usual fashion. C-arm AP view was then taken. C-arm was positioned in a way that L3 was centralized and superior endplate of was parallel to the beam. Spinous process was centered between the pedicles. Midline was marked with skin marker and lateral borders of the pedicles were also marked. Skin marker was also utilized to cheko transversely across the middle of the pedicles at L3. 2 transverse paramedian incisions of 1 inch were placed. The fascia was incised vertically. Finger dissection was utilized to palpate the transverse process and facet joint. Viper Prime screws with towers were inserted and docked onto the transverse processes. This was then slowly moved medially to reach the superior articular process of L3. This was then confirmed on C-arm and then a mallet was utilized to drive the trocar into the pedicle going up to the medial wall of the pedicle on AP view. This was performed both sides. C-arm lateral view confirmed that the tip of the trocar was in the vertebral body, and the screw was advanced into the pedicle and vertebral body. This was repeated similarly at L4 and L5 bilaterally. Screw sizes were 7 x 50 mm at all levels bilaterally. 80 mm precontoured titanium 5.5 mm lordotic jihan on the left and 90 mm on the right were then passed through the screw extensions and reduced down to the screws with the help of Sensum instrumentation system on both sides. AP and lateral view of the C-arm showed good positioning of the screws and cages. Final tightening with the torque screwdriver was then completed. Julia was utilized to roughen the facet joint at L3-4 and L4-5 on the left side. Cancellous allograft bone chips mixed with bone marrow aspirate were then placed over this decorticated area. Hemostasis was achieved. Closure was done in layers with 0 Vicryls for the fascia, 2-0 Vicryls for the subcutaneous tissue, and Monocryl for the skin. Dermabond was applied. Dressings were applied covered with Tegaderm. The patient was then turned supine onto a hospital bed. The patient was extubated and taken to PACU in stable condition. The patient tolerated the procedure well and no complications occurred. [employer] [place] cage & Viper Prime minimally invasive pedicle screw instrumentation system was utilized in this case. No dural tear was identified intraoperatively. I was present for the entirety of the case and performed the surgery. Surgeon: Shorty Tobias automotive finance manager: Baldemar Heath Admit VTE Documentation VTE Mechan Device Prophylaxis: SCD's Procedures Musculoskeletal 20xxx-29xxx: Other Procedure See Report
[2023-12-10 15:37] LABS: Bedside Glucose 196 mg/dL (74-106)
[2023-12-10] MEDS: metFORMIN HCl 1,000 MG Tablet 1000 MG PO (16:54)
[2023-12-10] MEDS: Morphine 2 MG/ML Syringe IV (16:54)
[2023-12-10] MEDS: Methocarbamol 500 MG Tablet 1000 MG PO ×2 (17:30→22:44)
[2023-12-10] MEDS: Ketorolac 15 MG/ML Vial IV (18:06)
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
[2023-12-10] MEDS: oxyCODONE 5 MG Tablet PO (20:38)
[2023-12-10] MEDS: Senna/Docusate Sodium 1 Tablet 2 TABLET PO (22:44)
[2023-12-10] MEDS: Insulin Lispro 100 UNIT/ML INSULN.PEN SC (23:21)
[2023-12-11] VITALS (9 sets, daily range): BP systolic 157–173; BP diastolic 85–110; PULSE 96–110; RESP 15–18; TEMP 36.4–37.2; O2SAT 95–99
[2023-12-11] MEDS: Ketorolac 15 MG/ML Vial IV ×2 (00:05→05:25)
[2023-12-11] MEDS: Acetaminophen 500 MG Tablet 1000 MG PO ×2 (00:05→07:53)
[2023-12-11 00:25] LABS: Bedside Glucose 150 mg/dL (74-106)
[2023-12-11] MEDS: Morphine 2 MG/ML Syringe IV (00:50)
[2023-12-11] MEDS: Clindamycin 900 MG/50 ML BAG 75 MG IV (00:53)
[2023-12-11] MEDS: hydrALAZINE 20 MG/ML Vial 5 MG IV (05:21)
[2023-12-11 07:00] LABS: Hemoglobin 13.1 g/dL (13.0-16.5); Mean Corp Hgb Conc 32.8 g/dL (32-36); Mean Corpuscular Volume 85.5 fL (80-94); Mean Platelet Vol. 11.6 fl (6.2-12.0); Platelet Count 227 K/mm3 (150-450); RBC Distribution Width CV 15.3 % (11.6-14.6); RBC Distribution Width SD 47.4 fl (35.1-43.9); Red Blood Count 4.68 M/mm3 (4.6-6.2); White Blood Count 11.6 K/mm3 (4.4-11.0)
[2023-12-11 07:14] LABS: Bedside Glucose 125 mg/dL (74-106)
[2023-12-11 07:47] LABS: Anion Gap 8 (5-15); BUN 17 mg/dL (7-18); BUN/Creat Ratio 17.6 RATIO (10-20); Calcium,Total 8.1 mg/dL (8.5-10.1); Chloride 106 mmol/L (98-107); Creatinine, Serum 0.97 mg/dL (0.70-1.30); EST Glomerular Filtration Rate 91 mL/min (>60); Est Glom Filt Rate - Afr Amer 110 mL/min (>60); Estimated Creatinine Clearance 155.67 ml/min; Glucose 122 mg/dL (74-106); Potassium 3.8 mmol/L (3.5-5.1); Sodium Level 136 mmol/L (136-145)
[2023-12-11] MEDS: Ensure Surgery 237 ML LIQUID PO (07:52)
[2023-12-11] MEDS: oxyCODONE 5 MG Tablet PO ×2 (07:52→11:59)
[2023-12-11] MEDS: Senna/Docusate Sodium 1 Tablet 2 TABLET PO (07:52)
[2023-12-11] MEDS: hydroCHLOROthiazide 12.5mg 12.5 MG PO (07:53)
[2023-12-11] MEDS: Lisinopril 10 MG Tablet PO (07:53)
[2023-12-11] MEDS: Pantoprazole Sodium 40 MG Tablet PO (07:53)
[2023-12-11] MEDS: metFORMIN HCl 1,000 MG Tablet 1000 MG PO (07:53)
[2023-12-11] MEDS: Meloxicam 15 MG Tablet PO (07:53)
[2023-12-11] MEDS: Methocarbamol 500 MG Tablet 1000 MG PO (09:35)
--- NOTE | 2023-12-11 09:55 | RAD_ITS ---
STUDY: X-RAY - LUMBAR SPINE REASON FOR EXAM: Male, 38 years old. s/p fusion -- Please do upright AP lateral TECHNIQUE: 2 view(s) of the lumbar spine were obtained. COMPARISON: None FINDINGS: Normal lumbar lordosis. There is no substantial scoliosis. There is a normal alignment of the vertebrae. The patient is status post laminectomy and fusion at the L3-L4 and L4-L5 levels with prosthetic disc placement. The soft tissue structures are unremarkable. RAD/Lumbar Spine 2 or 3 Views IMPRESSION: Status post fusion at the L3-L4 and L4-L5 levels. Electronically Signed: William Bailey MD at 10:45 EDT ,
--- NOTE | 2023-12-11 11:17 | CASEMGMT ---
QUITA MERAZ Assessment: Face to Face with pt for initial transition planning/care coordination assessment. QUITA MERAZ introduced self and role at [facility] [place], pt voices understanding and consents to assessment. Pt sleeping when RN KT arrived, pt in no distress. Pt is A&O x4 and answers all questions appropriately at this time. Care providers, pharmacy, and demographics verified/updated. Admitting Dx: ERAS Anterior and Posterior lumbar PCP: Shola Specialists: STEPHEN Pham Preferred Pharmacy: [facility] [place] Insurance: [facility] Prescription Benefit: yes LNOK: Rudi - dad, Criss - mom, Palmira - sister Living Arrangements: Pt lives with girlfriend and 3 kids in a 1 story apt with 12 stairs and handrails to enter. Pt states he is I with ADLs an IADLs. Transportation: Pt girlfrind able to transport. DME: Hearing aids HHC/SNF: Denies Hx of Pt states no concerns with going home at time of dc. Pt states no further concerns/needs. CM to follow. Advised pt to ask CM if any further question/concerns/needs arise, voices understanding. Pt Goal: Home Plan: Home no needs Corby DEVLIN CM
[2023-12-11 11:26] LABS: Bedside Glucose 197 mg/dL (74-106)
[2023-12-11] MEDS: Insulin Lispro 100 UNIT/ML INSULN.PEN SC (11:59)
--- NOTE | 2023-12-11 12:07 | PCM.PN.ORT ---
Subjective Subjective Postop day 1 status post L3-5 fusion. Pain well-controlled. Has significant pain overnight but it is now much better after walking with PT. Passed flatus. Tolerated solid diet. Denies any nausea vomiting. Objective Data Objective Data Vital Signs: Vital Signs Temp Pulse Resp BP Pulse Ox O2 Del Method O2 Flow Rate 98.9 F 109 H 18 157/110 H 95 Room Air 2 12/11/23 09:43 12/11/23 09:43 12/11/23 09:43 12/11/23 09:43 12/11/23 10:47 12/11/23 09:43 12/11/23 04:00 Oxygen Flow Rate (L/min) 2 Oxygen Delivery Method Room Air Weight: 312 lb 2.793 oz Body Mass Index (BMI) 38.0 Intake & Output: Intake and Output for Last 24 Hours 12/09/23 12/10/23 12/11/23 23:59 23:59 23:59 Intake Total 1234 / 1634 750 / 750 Output Total 200 / 200 Balance 1034 / 1434 750 / 750 Lab / Micro Data 12/11/23 06:13 12/11/23 06:13 Labs: Laboratory Results - last 24 hr 12/10/23 15:19: POC Glucose 196 H 12/10/23 23:15: POC Glucose 150 H 12/11/23 06:13: WBC 11.6 H, RBC 4.68, Hgb 13.1, Hct 40.0, MCV 85.5, MCH 28.0, MCHC 32.8, RDW Std Deviation 47.4 H, RDW Coeff of [place] 15.3 H, Plt Count 227, MPV 11.6, Sodium 136, Potassium 3.8, Chloride 106, Carbon Dioxide 22.0, Anion Gap 8, BUN 17, Creatinine 0.97, Estim Creat Clear Calc 155.67, Est GFR (MDRD) Af Amer 110, Est GFR (MDRD) Non-Af 91, BUN/Creatinine Ratio 17.6, Glucose 122 H, Calcium 8.1 L 12/11/23 06:50: POC Glucose 125 H 12/11/23 11:08: POC Glucose 197 H Micro: Microbiology 12/01/23 09:37 Swab (Method) Nasal Screen MRSA/MSSA - Final Radiography Diagnostic Testing: Radiology Impression Lumbar Spine X-Ray 12/10/23 09:25 IMPRESSION: Spot fluoroscopic intraoperative images of the lumbar spine with images to be interpreted by the operating physician. Electronically Signed: Amador Leiva DO at 4:19 EDT , Lumbar Spine X-Ray 12/11/23 09:55 IMPRESSION: Status post fusion at the L3-L4 and L4-L5 levels. Electronically Signed: William Bailey MD at 10:45 EDT , Physical Exam Narrative Dressing?CDI. Neurologic evaluation of lower extremity shows 5 x 5 power normal shows normal sensations in all dermatomes. Assessment & Plan Assessment/Plan (1) Status post lumbar spinal fusion: PLAN: Plan Postop day 1 status post L3-5 fusion. X-rays reviewed. Look good. PT cleared. Passed flatus. Tolerating solid diet. Okay to discharge home and follow-up in 2 weeks.
== END 2023-12-11 13:40 | disposition home or self-care (01) | DRG 304 ==
LOC: ACINP 06:48 → MS3 14:24
PROVIDERS: Anesthesiology; Admitting Provider Orthopaedic Surgery Orthopaedic Surgery of the Spine; PCP Family Medicine; Referring Provider Orthopaedic Surgery Orthopaedic Surgery of the Spine; Visit Provider Orthopaedic Surgery Orthopaedic Surgery of the Spine
PROC: 0SG10A0 Fusion of 2 or more Lumbar Vertebral Joints with Interbody Fusion Device, Anterior Approach, Anterior Column, Open Approach (ICD-10-PCS; principal; 2023-12-10 08:15)
DX: M51.26 Other intervertebral disc displacement, lumbar region (principal); E11.9 Type 2 diabetes mellitus without complications; I10 Essential (primary) hypertension; M48.062 Spinal stenosis, lumbar region with neurogenic claudication; K21.9 Gastro-esophageal reflux disease without esophagitis; M51.36 Other intervertebral disc degeneration, lumbar region; X58.XXXA Exposure to other specified factors, initial encounter; Z79.84 Long term (current) use of oral hypoglycemic drugs; Z79.85 Long-term (current) use of injectable non-insulin antidiabetic drugs; Z79.899 Other long term (current) drug therapy; Z87.891 Personal history of nicotine dependence
CPT/HCPCS: 36415; 72100; 76000; 80048; 82962; 83036; 83735; 85027; 86703; 86706; 86708; 86803; 86850; 86900; 86901; 87077; 87081; 93005; 97162; 97530; A4648; C1713; J7120; J2405; J3475

== ENCOUNTER 2024-02-25 12:00 | Outpatient (RCR) | payer MEDICAID, SELFPAY ==
--- NOTE | 2023-12-31 18:45 | HP.PTEVAL ---
Patient's Visit Information Visit Information Visit Information: STEFANY KAUR is a 38 year old M referred to Physical Therapy by Dr. Shorty Tobias MD with a diagnosis of S/P Lumbar spinal Fusion on 12-10-23. Date of Evaluation: 12/31/23 Physical Therapist: MERCEDEZ Florez Visit Plan Frequency: 2-3x /Week Duration: 2 Months Plan: 2-3X/ week for 8 weeks for neutral spine core stability, LE strength, HS stretches, L DF strength, postural exercises with HEP HEP: strap 90/90 HS stretch, standing heel and toe raises Subjective Subjective: Pt had a spinal fusion 3 weeks ago 12-10-23. He feels better standing up. He is in pain at night time. He can not get through the night without waking up. He is ok if he is standing and moving around. He has been having aching pain down the front on the L side. Before he had surgery he had pain on the R side and down the back on the L. His legs are not strong yet. His legs are aching due to weakness or over the incisions. He can not sit for about 5 min or in a car for like 30 min. It is more just achy pain now and not nerve pain at all. The Dr told him not to lift over 6# and no bend or twist for [address] said to just walk. He is not on pain meds. He has been using Tylenol through the night. Pain back pain: Pain Intensity (Out of 10): 0 Pain Intensity Range: 9 and 10 L groin.thigh pain: Pain Intensity (Out of 10): Unrated Objective Objective: Gait: Pt has normal gait pattern other than decreased trunk rotation Tight HS B LE MMT: R hip flex 12.2 and L 13.8 R knee ext 24.2 and l 21.1 R knee flex 11.3 and L 12.2 R hip abd 5 and L 5.2 Patellar DTR's 0/3 Heel and Toe raises Pt has slightly decreased L toe raise compared to the R Stairs; Up and down stairs recip with 1 hand rail Balance/Special Test Scores Oswestry Low Back Score: 23 Goals Goal 1:: I HEP Goal Time Frame: 6-8 Weeks Goal 2:: Be able to raise L foot into DF as equal to the R foot Goal Time Frame: 6-8 Weeks Goal 3:: Increase LE strength (at the time of the eval: R hip flex 12.2 and L 13.8 R knee ext 24.2 and l 21.1 R knee flex 11.3 and L 12.2 R hip abd 5 and L 5.2) Goal Time Frame: 6-8 Weeks Goal 4:: Decrease achy pain by 50% Goal Time Frame: 6-8 Weeks Rehabilitation Potential Rehabilitation Potential: Good Anticipated Interventions Patient/Client Instruction: Educate patient on: Condition and Plan of Care For the Purpose of:: To decrease pain, To increase ROM, To improve nutrient delivery to tissue, To improve muscle performance and motor function, To improve ability to perform ADL's, To improve performance and independence with ADL's, To decrease level of supervision to perform tasks, To improve ability of physical actions for home/community/work/leisure, To improve gait and locomotor functions, To improve health of tissue, To decrease soft tissue restriction and To increase flexibility/ROM Therapeutic Exercise to Include: Strength training, Body mechanics, Postural training, Flexibilty training, Neuromotor development, Active ROM, Dynamic Lumbar Stabilization and Scapular Strength/Stabilization For the Purpose of:: To decrease pain, To increase ROM, To improve nutrient delivery to tissue, To improve muscle performance and motor function, To improve ability to perform ADL's, To increase tolerance to activity/condition/position, To decrease level of supervision to perform tasks, To improve ability of physical actions for home/community/work/leisure, To improve gait and locomotor functions, To improve health of tissue, To decrease soft tissue restriction and To increase flexibility/ROM Manual Therapy Techniques to Include: Soft tissue mobilization For the Purpose of:: To decrease pain, To decrease swelling/inflammation, To improve nutrient delivery to tissue, To improve muscle performance and motor function, To improve health of tissue, To decrease soft tissue restriction and To increase flexibility/ROM Text: Thank you for the opportunity to evaluate your patient. For Medicare and Medicare HMO plans, please review the plan of care and approve it. It will need to be FAXED BACK to us at [phone] for Medicare purposes. For Medicare only, by signing this I certify the plan of care. Please let me know if there are questions or concerns regarding this plan of care. Physician Signature: Date:
--- NOTE | 2024-05-18 07:27 | HP.PT.NRP ---
Patient Information Patient Information: STEFANY KAUR was seen in my office for initial evaluation on 12/31/23. The following Plan of Care was established for this patient: POC Established Initial Frequency: 2-3x /Week Initial Duration: 2 Months Anticipated Interventions Patient/Client Instruction: Educate patient on: Condition and Plan of Care For the Purpose of:: To decrease pain, To increase ROM, To improve nutrient delivery to tissue, To improve muscle performance and motor function, To improve ability to perform ADL's, To improve performance and independence with ADL's, To decrease level of supervision to perform tasks, To improve ability of physical actions for home/community/work/leisure, To improve gait and locomotor functions, To improve health of tissue, To decrease soft tissue restriction and To increase flexibility/ROM Therapeutic Exercise to Include: Strength training, Body mechanics, Postural training, Flexibilty training, Neuromotor development, Active ROM, Dynamic Lumbar Stabilization and Scapular Strength/Stabilization For the Purpose of:: To decrease pain, To increase ROM, To improve nutrient delivery to tissue, To improve muscle performance and motor function, To improve ability to perform ADL's, To increase tolerance to activity/condition/position, To decrease level of supervision to perform tasks, To improve ability of physical actions for home/community/work/leisure, To improve gait and locomotor functions, To improve health of tissue, To decrease soft tissue restriction and To increase flexibility/ROM Manual Therapy Techniques to Include: Soft tissue mobilization For the Purpose of:: To decrease pain, To decrease swelling/inflammation, To improve nutrient delivery to tissue, To improve muscle performance and motor function, To improve health of tissue, To decrease soft tissue restriction and To increase flexibility/ROM Last Seen Last Seen: This patient was last seen in our office 02/25/24. Pertinent comments regarding their Physical therapy will appear below: DC PT At this point I will be discontinuing this patient from physical therapy. I would be happy to see this patient again in the future if found appropriate by the physician. Thank you! Vijaya Florence, MPT Balance/Gait/Functional tests Balance/Special Test Scores Oswestry Low Back Score: 23
== END 2024-02-25 19:00 | disposition home or self-care (01) ==
LOC: PT 12:00
PROVIDERS: PCP Family Medicine; Referring Provider Orthopaedic Surgery Orthopaedic Surgery of the Spine; Visit Provider Orthopaedic Surgery Orthopaedic Surgery of the Spine
DX: Z98.1 Arthrodesis status (principal)
CPT/HCPCS: 97110; 97161

== ENCOUNTER 2024-09-03 21:05 | Emergency (ER) | payer MEDICAID, SELFPAY ==
[2024-09-03 21:06] VITALS: BP 159/120; PULSE 115; RESP 20; TEMP 36.6; O2SAT 98; BMI 38.5
[2024-09-03 22:56] VITALS: BP 154/100
[2024-09-04 00:41] VITALS: BP 133/89; PULSE 68; RESP 16; O2SAT 95
--- NOTE | 2024-09-04 00:41 | EKG12_ITS ---
Test Reason : DYSRHYTHMIA Blood Pressure : */* mmHG Vent. Rate : 100 BPM Atrial Rate : 100 BPM P-R Int : 170 ms QRS Dur : 86 ms QT Int : 340 ms P-R-T Axes : 57 55 47 degrees QTcB Int : 438 ms Normal sinus rhythm Normal ECG Confirmed by Rudi Preciado ([id number]), editorial manager MARIBEL HERNANDEZ ([id number]) on 09/06/2024 9:59:12 AM Referred By: Confirmed By: Rudi Preciado
[2024-09-04 00:55] LABS: Absolute Lymphocyte Count 3.81 X10^3/uL (0.83-4.51); Absolute Neutrophil Count 5.4 X10^3/uL (2.0-7.7); Basophil# 0.05 X10^3/uL; Basophil% 0.5 % (0-1); Eosinophil# 0.23 X10^3/uL; Eosinophils% 2.3 % (0-5); Hematocrit 47.8 % (40-54); Hemoglobin 15.9 g/dL (13.0-16.5); Lymphocyte # 3.81 X10^3/ul (0.83-4.51); Lymphocyte % 37.3 % (19-41); Mean Corp Hgb Conc 33.3 g/dL (32-36); Mean Corpuscular Hgb 27.7 pg (27.0-32.0); Mean Corpuscular Volume 83.3 fL (80-94); Mean Platelet Vol. 11.2 fl (6.2-12.0); Monocyte# 0.67 X10^3/uL; Monocyte% 6.6 % (0-10); NRBC Flagged by Analyzer 0 % (0-5); Neutrophil # 5.41 X10^3/uL (2.7-7.7); Neutrophil % 52.8 % (47-70); Platelet Count 218 K/mm3 (150-450); RBC Distribution Width CV 14.9 % (11.6-14.6); RBC Distribution Width SD 44.9 fl (35.1-43.9); Red Blood Count 5.74 M/mm3 (4.6-6.2); White Blood Count 10.2 K/mm3 (4.4-11.0)
[2024-09-04] MEDS: cloNIDine HCl 0.1 MG Tablet PO (01:03)
[2024-09-04 01:13] LABS: Anion Gap 8 (5-15); BUN 26 mg/dL (7-18); BUN/Creat Ratio 16.1 RATIO (10-20); Calcium,Total 9.8 mg/dL (8.5-10.1); Chloride 100 mmol/L (98-107); Creatinine, Serum 1.61 mg/dL (0.70-1.30); EST Glomerular Filtration Rate 50 mL/min (>60); Est Glom Filt Rate - Afr Amer 61 mL/min (>60); Estimated Creatinine Clearance 93.57 ml/min; Glucose 229 mg/dL (74-106); Potassium 3.8 mmol/L (3.5-5.1); Sodium Level 135 mmol/L (136-145); Troponin-I HS 10 pg/mL (3.0-78.0)
--- NOTE | 2024-09-04 01:45 | EX.ED.DYSGE1 ---
HPI History of Present Illness Chief Complaint: Hypertension Informant: patient and spouse/S.O. Narrative Narrative: Patient is a 39-year-old male with past medical history of GERD and type 2 diabetes. He states he also has a history of high blood pressure. He reports he was prescribed lisinopril but ran out of this and therefore just stopped taking his medication. He states that he felt his blood pressure was improved as he had lost weight but now he has regained the weight and has noticed that his blood pressure is running high. He states he is scheduled to see his family doctor for repeat evaluation in roughly 1 week but with concern that the high blood pressure could cause adverse effects he presents for evaluation The patient denies any headache change in vision chest pain or shortness of breath at this time [facility] Medical History Diabetes Seizures History of hiatal hernia Shortness of breath on exertion History of pain when walking Wears hearing aid Wears glasses Anxiety Marijuana use DVT (deep venous thrombosis) Back pain Dietary restriction Gastric reflux Former smoker Hypertension History of echocardiogram Umbilical hernia Home Medications ?Medication ?Instructions ?Recorded ?Last Taken ?Type omeprazole 40 mg capsule,delayed 40 mg PO DAILY GERD #30 caps 08/14/22 12/10/23 04:00 Rx release metoprolol succinate 25 mg 25 mg PO DAILY 30 days #30 tabs 09/04/24 Unknown Rx tablet,extended release 24 hr Allergy/AdvReac Type Severity Reaction Status Date / Time cefaclor (From [facility]) Allergy Intermediate Rash Verified 09/03/24 21:07 Family History Father Heart disease Brother Heart disease Aunt No problems noted. Surgical History History of esophagogastroduodenoscopy (EGD) Hx of tonsillectomy Hx of myringotomy Social History Smoking Status: Former smoker ROS ROS ED Constitutional Constitutional ED: Denies chills or fever(s) Eyes Eyes: Denies blurry vision or change in vision ENT ENT ED: Denies sore throat Cardiovascular Cardiovascular: Denies chest pain, palpitations or racing heartbeat Respiratory/Chest Respiratory/Chest: Denies cough or dyspnea Gastrointestinal Gastrointestinal: Denies abdominal pain, diarrhea, nausea or vomiting Genitourinary Genitourinary ED: Denies dysuria Musculoskeletal Musculoskeletal: Denies myalgias Integumentary Denies rash Neurologic Neurologic: Denies headache(s) Hematologic/Lymphatic Hematologic/Lymphatic: Denies easy bleeding or easy bruising EXAM Physical Exam Const Vital Signs: 09/03/24 21:06 09/03/24 22:56 09/04/24 00:41 Temperature 97.8 F Temperature Source Temporal Pulse Rate 115 H 68 Respiratory Rate 20 H 16 Respiratory Effort Respiratory Pattern Blood Pressure 159/120 H 154/100 H 133/89 H Blood Pressure Mean 133 118 103 Pulse Ox 98 95 Oxygen Delivery Method Room Air Room Air 09/04/24 01:05 09/04/24 02:04 Temperature 97.8 F Temperature Source Pulse Rate 75 Respiratory Rate 18 Respiratory Effort Normal Non-Labored Respiratory Pattern Normal Blood Pressure 145/98 H Blood Pressure Mean 113 Pulse Ox 97 Oxygen Delivery Method Positive well nourished, well developed and obese General Appearance ED: well developed; Negative for pallor Nutritional Appearance: obese HEENT HEENT Narrative: Normocephalic atraumatic Eyes PERRL and EOMs intact bilaterally General Eye ED: Negative for scleral icterus Neck supple and no JVD Resp normal respiratory effort and clear to auscultation bilaterally Cardio regular rate and regular rhythm Rate: other Other Details: Heart is regular rate and rhythm without murmurs rubs or gallop Radial and carotid pulses are equal and symmetric GI normal to inspection, nondistended, normoactive bowel sounds, non-tender, non-distended and no masses GI Narrative: No voluntary guarding or rigidity or pulsatile mass Auscultation: normoactive bowel sounds Palpation: soft Extremity normal to inspection Extremity Narrative: No asymmetric edema no pitting edema negative Homans' sign bilaterally Neuro oriented x3, CN's II-XII intact bilaterally and no sensory deficits noted Neuro Narrative: GCS of 15 Cranial nerves II through XII are grossly intact without focal neurologic deficit No pronator drift no dysmetria no truncal ataxia NIH stroke scale score of 0 Sensorium / Orientation: alert Motor Exam: strength 5/5 throughout Psych mental status grossly normal Skin no rashes or lesions noted General Skin Exam: Negative for jaundice or pallor MDM MDM MDM Narrative Medical decision making narrative: Patient presented to the ER hypertensive but otherwise with stable vitals. He reported a history of hypertension and admits to not taking his medication for quite some time. He denies any excessive stimulant use or illicit drug use. He states he does not have a headache or change in vision and he denies chest pain or shortness of breath. However in order to ensure he has not developed signs of endorgan damage from his uncontrolled hypertension EKG was obtained as well as basic lab. As he is awake alert and oriented with normal neurologic exam I have low concern for a spontaneous subarachnoid or subdural hemorrhage nor does he show changes concerning for hypertensive encephalopathy. EKG was sinus rhythm troponin is normal at a value of 10 going against acute cardiac injury. The patient's creatinine is slightly elevated at 1.6 but chart review reveals his baseline is approximately 1 and therefore I would not classify this as endorgan damage which is simply renal insufficiency. The patient was given 0.1 mg of oral clonidine and have reduction of his blood pressure between 15 and 25% which is the goal reduction in the ER. His neurologic exam remains normal. Therefore at this time without signs of endorgan damage and improvement of his blood pressure he is otherwise safe for discharge with symptomatic care History & Record Review Discussion w/independent historian: Patient and Significant other Lab Data Attestation: I reviewed the patient's lab results. Labs: Laboratory Results - last 24 hr 09/04/24 00:50 WBC 10.2 RBC 5.74 Hgb 15.9 Hct 47.8 MCV 83.3 MCH 27.7 MCHC 33.3 RDW Std Deviation 44.9 H RDW Coeff of [place] 14.9 H Plt Count 218 MPV 11.2 Immature Gran % (Auto) 0.500 Neut % (Auto) 52.8 Lymph % (Auto) 37.3 [place] % (Auto) 6.6 Eos % (Auto) 2.3 Baso % (Auto) 0.5 Absolute Neuts (auto) 5.4 Absolute Lymphs (auto) 3.81 Nucleated RBC % 0 Sodium 135 L Potassium 3.8 Chloride 100 Carbon Dioxide 27.0 Anion Gap 8 BUN 26 H Creatinine 1.61 H Estim Creat Clear Calc 93.57 Est GFR (MDRD) Af Amer 61 Est GFR (MDRD) Non-Af 50 L BUN/Creatinine Ratio 16.1 Glucose 229 H Calcium 9.8 Troponin I High Sens 10 Discharge Plan Triage Chief Complaint: Hypertension ED Provider: Bijan Dumont Dx/Rx/DC Orders Clinical Impression: Accelerated hypertension, Type 2 diabetes mellitus Instructions: Controlling High Blood Pressure, Hypertension Dc Prescriptions: New metoprolol succinate 25 mg tablet extended release 24 hr 25 mg PO DAILY 30 Days Qty: 30 0RF No Action omeprazole 40 mg capsule,delayed release(DR/EC) 40 mg PO DAILY Qty: 30 0RF Primary Care Provider: Raul Jolley Referrals: Raul Jolley MD [Primary Care Provider] - Activity Restrictions/Additional Instructions: Please stop taking the lisinopril as your kidney function was slightly elevated today with a creatinine of 1.6. Begin taking the metoprolol once a day that was prescribed from the ER. Follow-up with your family doctor to discuss need for dosage increase or additional medications to control your blood pressure and return to the ER should you have any further concerns Print Language: Kazakh Disposition Disposition: Home, Self Care Discharge Date/Time: 09/04/24 02:06
[2024-09-04 02:04] VITALS: BP 145/98; PULSE 75; RESP 18; TEMP 36.6; O2SAT 97
== END 2024-09-04 02:06 | disposition home or self-care (01) ==
PROVIDERS: Emergency Provider Emergency Medicine; PCP Family Medicine; Visit Provider Emergency Medicine
DX: I10 Essential (primary) hypertension (principal); E11.9 Type 2 diabetes mellitus without complications; Z87.891 Personal history of nicotine dependence; K21.9 Gastro-esophageal reflux disease without esophagitis; Z86.718 Personal history of other venous thrombosis and embolism; E66.9 Obesity, unspecified
CPT/HCPCS: 80048; 84484; 85025; 93005; 99283; A4216

== ENCOUNTER → 2024-09-06 | Outpatient (CLI) | payer MEDICAID, SELFPAY ==
[2024-09-06 17:44] LABS: Absolute Lymphocyte Count 2.45 X10^3/uL (0.83-4.51); Absolute Neutrophil Count 4.5 X10^3/uL (2.0-7.7); Basophil# 0.02 X10^3/uL; Basophil% 0.3 % (0-1); Eosinophil# 0.16 X10^3/uL; Eosinophils% 2.1 % (0-5); Hematocrit 46.6 % (40-54); Hemoglobin 15.4 g/dL (13.0-16.5); Lymphocyte # 2.45 X10^3/ul (0.83-4.51); Lymphocyte % 31.9 % (19-41); Mean Corpuscular Hgb 27.6 pg (27.0-32.0); Mean Corpuscular Volume 83.7 fL (80-94); Monocyte# 0.48 X10^3/uL; Monocyte% 6.3 % (0-10); NRBC Flagged by Analyzer 0 % (0-5); Neutrophil # 4.54 X10^3/uL (2.7-7.7); Platelet Count 210 K/mm3 (150-450); RBC Distribution Width CV 14.6 % (11.6-14.6); RBC Distribution Width SD 44.4 fl (35.1-43.9); Red Blood Count 5.57 M/mm3 (4.6-6.2); White Blood Count 7.7 K/mm3 (4.4-11.0)
[2024-09-06 18:23] LABS: ALB/GLOB Ratio 0.9 RATIO (0.9-2.4); AST(SGOT) 23 U/L (15-37); Alanine Aminotransfer ALT/SGPT 48 U/L (16-61); Albumin, Serum 3.8 g/dL (3.2-5.0); Alkaline Phosphatase 95 U/L (45-117); Anion Gap 8 (5-15); BUN 16 mg/dL (7-18); BUN/Creat Ratio 16.4 RATIO (10-20); Calcium,Total 9.2 mg/dL (8.5-10.1); Chloride 103 mmol/L (98-107); Creatinine, Serum 0.98 mg/dL (0.70-1.30); EST Glomerular Filtration Rate 90 mL/min (>60); Est Glom Filt Rate - Afr Amer 109 mL/min (>60); Globulin 4.4 g/dL (2.2-4.2); Glucose 178 mg/dL (74-106); Potassium 3.9 mmol/L (3.5-5.1); Protein, Total 8.2 g/dL (6.4-8.2); Sodium Level 135 mmol/L (136-145)
[2024-09-06 18:50] LABS: Vitamin D,25 Hydroxy 24.4 ng/mL
[2024-09-06 19:46] LABS: Hemoglobin A1c 7.9 % (3.8-5.6)
== END | disposition home or self-care (01) ==
LOC: MFPLAB 16:37
PROVIDERS: PCP Family Medicine; Referring Provider Family Medicine; Visit Provider Family Medicine
DX: I10 Essential (primary) hypertension (principal); E11.9 Type 2 diabetes mellitus without complications; R53.83 Other fatigue
CPT/HCPCS: 36415; 80053; 82306; 83036; 84443; 85025